=== PATIENT | male | born 1940 | race Caucasian/White ===

== ENCOUNTER 2020-01-16 18:27 | Emergency (ER) | payer MEDICARE, BC ==
[2020-01-16 18:42] VITALS: BP 176/93; PULSE 73
--- NOTE | 2020-01-16 19:21 | EDM.PDOC ---
ED HPI GENERAL MEDICAL PROBLEM - General Chief Complaint: Upper Extremity Injury/Pain Stated Complaint: LEFT SHOULDER PAIN Time Seen by Provider: 01/16/20 19:05 Source of Information: Reports: Patient, Old Records, Provider History Limitations: Reports: No Limitations - History of Present Illness INITIAL COMMENTS - FREE TEXT/NARRATIVE: 79 yo male referred to the ER from the clinic for L shoulder pain for a few day with concern about cardiac etiology. Not related to exertion. No SOB, nausea or diaphoresis. An EKG and CXR in the clinic were not worrisome. No cardiac hx. 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 Now that he is here in the ER his pain is all gone. Onset: Gradual Onset Date: 01/13/20 Duration: Day(s): (3), Constant Location: Reports: Upper Extremity, Left (shoulder) Severity: Mild Improves with: Reports: None Worsens with: Reports: None Context: Reports: Other (see HPI) Associated Symptoms: Reports: No Other Symptoms Treatments INSURANCE PROFESSIONAL: Reports: Other (see below) (none) SHOULDER Pain Score (Numeric/FACES): 3 - Related Data Allergies Allergy/AdvReac Type Severity Reaction Status Date / Time No Known Allergies Allergy Verified 01/16/20 18:42 Home Meds: Home Meds Lisinopril 20 mg PO DAILY 08/27/16 [History] NIFEdipine [Procardia XL] 30 mg PO DAILY 08/27/16 [History] Tamsulosin [Tamsulosin 24 Hr] 0.4 mg PO DAILY 08/27/16 [History] Warfarin [Coumadin] 5 mg PO DAILY 08/27/16 [History] Donepezil HCl 10 mg PO DAILY 12/08/19 [History] Fluticasone Propionate [Flonase] 2 spray NASBOTH DAILY PRN 12/08/19 [History] Folic Acid 0.8 mg PO DAILY 12/08/19 [History] Hanson-3/DHA/Epa/Fish Oil [Hanson-3 Fish Oil 1,200 MG Sfgl] 1,200 mg PO DAILY [History] Multivit with Calcium,Iron,Min [One Daily with Calcium-Iron] 1 tab PO DAILY [History] Past Medical History HEENT History: Reports: Impaired Vision Cardiovascular History: Reports: Afib, Hypertension Respiratory History: Reports: None Gastrointestinal History: Reports: None Genitourinary History: Reports: Urinary Incontinence Musculoskeletal History: Reports: Other (See Below) Other Musculoskeletal History: bilateral knee pain Neurological History: Reports: None Psychiatric History: Reports: None Endocrine/Metabolic History: Reports: None Hematologic History: Reports: None Immunologic History: Reports: None Oncologic (Cancer) History: Reports: None Dermatologic History: Reports: None - Past Surgical History Head Surgeries/Procedures: Reports: None Cardiovascular Surgical History: Reports: None GI Surgical History: Reports: Appendectomy Musculoskeletal Surgical History: Reports: None Social & Family History - Tobacco Use Smoking Status *Q: Never Smoker - Caffeine Use Caffeine Use: Reports: Tea - Recreational Drug Use Recreational Drug Use: No Review of Systems - Review of Systems Review Of Systems: See Below Constitutional: Reports: No Symptoms Respiratory: Reports: No Symptoms Cardiovascular: Reports: No Symptoms GI/Abdominal: Reports: No Symptoms Musculoskeletal: Reports: Shoulder Pain (Left, not worse with palpation or ROM. ) Skin: Reports: No Symptoms Neurological: Reports: No Symptoms ED EXAM, GENERAL - Physical Exam Exam: See Below Exam Limited By: No Limitations General Appearance: Alert, WD/WN, No Apparent Distress Eye Exam: Bilateral Eye: Normal Inspection Ears: Normal External Exam, Normal Canal, Hearing Grossly Normal Ear Exam: Bilateral Ear: Auricle Normal, Canal Normal Nose: Normal Inspection, No Blood Throat/Mouth: Normal Inspection, Normal Lips, Normal Oropharynx, Normal Voice, No Airway Compromise Head: Atraumatic, Normocephalic Neck: Normal Inspection Respiratory/Chest: No Respiratory Distress, Lungs Clear, Normal Breath Sounds, No Accessory Muscle Use Cardiovascular: Regular Rate, Rhythm, No Edema GI/Abdominal: Normal Bowel Sounds, Soft, Non-Tender, No Distention Back Exam: Normal Inspection Extremities: Normal Inspection, Normal Range of Motion, Non-Tender, No Pedal Edema. No: Pedal Edema, Limited Range of Motion, Increased Warmth, Redness Neurological: Alert, Oriented, CN II-XII Intact, Normal Cognition, No Motor/ Sensory Deficits Psychiatric: Normal Affect, Normal Mood Skin Exam: Warm, Dry, Intact, Normal Color, No Rash Course - Vital Signs Last Recorded V/S: Last Vital Signs Temp 37.1 C 01/16/20 18:40 Pulse 73 01/16/20 18:40 Resp 19 01/16/20 18:40 BP 176/93 H 01/16/20 18:40 Pulse Ox 95 01/16/20 18:40 - Orders/Labs/Meds Labs: Laboratory Tests 01/16/20 01/16/20 Range/Units 18:29 18:30 PT 19.4 H (9.5-12.0) sec INR 1.86 H D (0.80-1.20) Troponin I < 0.017 (0.000-0.056) ng/mL Departure - Departure Time of Disposition: 19:23 Disposition: Home, Self-Care 01 Condition: Good Clinical Impression: Shoulder pain Qualifiers: Chronicity: unspecified Laterality: left Qualified Code(s): M25.512 - Pain in left shoulder - Discharge Information *PRESCRIPTION DRUG MONITORING PROGRAM REVIEWED*: No *COPY OF PRESCRIPTION DRUG MONITORING REPORT IN PATIENT ARY: No Instructions: Shoulder Pain Referrals: Mallory White MD [Primary Care Provider] - Forms: ED Department Discharge Additional Instructions: Acetaminophen as needed for pain relief. Return if worse. Your heart enzyme test today was totally normal as were your other tests. If still concerned about your heart, then schedule a stress test with your doctor. Sepsis Event Note - Evaluation Sepsis Screening Result: No Definite Risk - Focused Exam Vital Signs: Vital Signs Temp Pulse Resp BP Pulse Ox 01/16/20 18:40 37.1 C 73 19 176/93 H 95 Date Exam was Performed: 01/16/20 Time Exam was Performed: 19:23
== END 2020-01-16 20:00 | disposition home or self-care (01) ==
LOC: JP.ED 18:27
DX: M25.512 Pain in left shoulder (principal); I48.91 Unspecified atrial fibrillation; I10 Essential (primary) hypertension; Z79.899 Other long term (current) drug therapy; Z79.01 Long term (current) use of anticoagulants
CPT/HCPCS: 36415; 84484; 85610; 99283

== ENCOUNTER 2021-03-14 06:44 | Inpatient (IN) | payer MEDICARE, BC ==
[2021-03-14] MEDS ORDERED: Povidone-Iodine 10% Soln 118.25 ML Bottle ONE (06:56)
[2021-03-14] MEDS ORDERED: Lactated Ringers 1,000 ML IV SCH (08:15)
[2021-03-14] MEDS ORDERED: ceFAZolin 2 GM in Premix Bag 1 BAG IV ONE (09:00)
[2021-03-14] MEDS ORDERED: fentaNYL 100 MCG/2 ML SDV ONE (09:29)
[2021-03-14] MEDS ORDERED: Propofol 200 MG/20 ML SDV ONE (09:29)
[2021-03-14] MEDS ORDERED: Midazolam 1 MG/ML 2 ML SDV ONE (09:29)
[2021-03-14] MEDS ORDERED: Lactated Ringers 1,000 ML ONE (10:12)
[2021-03-14] MEDS ORDERED: ePHEDrine 50 MG/ML SDV ONE (10:19)
[2021-03-14] MEDS ORDERED: Acetaminophen/HYDROcodone 325-5 MG Tab PO PRN (11:05)
[2021-03-14] MEDS ORDERED: Acetaminophen 325 MG Tab PO PRN (11:05)
[2021-03-14] MEDS ORDERED: Magnesium Hydroxide 400 MG/5 ML Susp 30 ML Cup PO PRN (11:05)
[2021-03-14] MEDS ORDERED: Ondansetron 4 MG/2 ML SDV IVPUSH PRN (11:05)
[2021-03-14] MEDS ORDERED: Sennosides 8.6 MG Tab PO PRN (11:05)
[2021-03-14] MEDS ORDERED: Fluticasone Propionate Nasal Spray 16 GM Bottle NASBOTH PRN (11:12)
[2021-03-14] MEDS ORDERED: Sodium Chloride 5% Ophth Soln 15 ML Bottle EYEBOTH PRN (11:15)
[2021-03-14] MEDS ORDERED: Prochlorperazine 5 MG in Sodium Chloride 0.9% 50 ML IV PRN (11:41)
--- NOTE | 2021-03-14 12:01 | CR ---
Knee 1V or 2V Rt CLINICAL HISTORY: Total arthroplasty FINDINGS: Patient is status post recent total knee arthroplasty. Components appear well seated. There is some intra-articular and subcutaneous kidneys air Impression: Status post total right knee arthroplasty
[2021-03-14] MEDS ORDERED: Hypromellose 0.3% Ophth Soln 15 ML Bottle EYEBOTH PRN (12:11)
[2021-03-14] MEDS: Acetaminophen/oxyCODONE 325-5 MG Tab PO PRN ×2 (13:08→18:20)
[2021-03-14] MEDS: Morphine 2 MG/ML SYRINGE IVPUSH PRN ×4 (13:14→21:35)
[2021-03-14] MEDS: Sodium Chloride 0.9% 1,000 ML IV SCH (15:57)
[2021-03-14] MEDS: ceFAZolin 1 GM in Premix Bag 1 BAG IV SCH ×2 (15:57→23:29)
[2021-03-14] MEDS: traMADol 50 MG Tab PO PRN ×2 (16:09→23:27)
[2021-03-14] MEDS: Nozin Nasal Sanitizer NASBOTH SCH ×2 (18:07→21:25)
[2021-03-14] MEDS ORDERED: Nozin Nasal Sanitizer NASBOTH SCH (21:00)
[2021-03-14] MEDS: Docusate Sodium 100 MG Cap PO SCH (21:26)
[2021-03-15] MEDS: Sodium Chloride 0.9% 1,000 ML IV SCH ×2 (00:52→09:01)
[2021-03-15] MEDS: Acetaminophen/oxyCODONE 325-5 MG Tab PO PRN ×3 (05:07→16:18)
--- NOTE | 2021-03-15 07:41 | PCM.SURGPN ---
- General Info Date of Service: 03/15/21 Date of Surgery/Procedure: 03/14/21 POD#: 1 Post-Op Diagnosis: right knee osteoarthritis Functional Status: Reports: Tolerating Diet, Ambulating (with FWW + assist ) - Review of Systems Musculoskeletal: Reports: Leg Pain (right ), Joint Pain (right knee ), Joint Swelling (right knee ) Neurological: Reports: Confusion (per baseline ) Psychiatric: Reports: No Symptoms - Patient Data Vitals - Most Recent: Last Vital Signs Temp 98.3 F 03/15/21 07:06 Pulse 82 03/15/21 07:06 Resp 20 03/15/21 07:06 BP 158/88 H 03/15/21 07:06 Pulse Ox 94 L 03/15/21 07:06 Weight - Most Recent: 221 lb 6.4 oz I&O - Last 24 Hours: Intake & Output 03/14/21 03/15/21 03/15/21 22:59 06:59 14:59 Intake Total 400 1269 Output Total 650 475 Balance -250 794 Lab Results Last 24 Hrs: Laboratory Results - last 24 hr 03/14/21 03/15/21 Range/Units 07:35 05:56 WBC 8.1 (4.5-11.0) K/uL RBC 4.14 L (4.30-5.90) M/uL Hgb 12.5 (12.0-15.0) g/dL Hct 38.4 L (40.0-54.0) % MCV 93 (80-98) fL MCH 30 (27-31) pg MCHC 33 (32-36) % Plt Count 214 (150-400) K/uL Blood Type A POSITIVE Gel Antibody Screen Negative Med Orders - Current: Current Medications Acetaminophen (Acetaminophen 325 Mg Tab) 650 mg PO Q4H PRN PRN Reason: Pain/Fever Hydrocodone Bitart/Acetaminophen (Acetaminophen/Hydrocodone 325-5 Mg Tab) 1 tab PO Q4H PRN PRN Reason: Pain (mild 1-3) Artificial Tears (Hypromellose 0.3% Ophth Soln 15 Ml Bottle) 0 ml EYEBOTH ASDIRECTED PRN PRN Reason: DRY EYES Bandage/Support Products (Nozin Nasal [employer]) 1 applic NASBOTH BID ISABEL Stop: 03/20/21 21:01 Last Admin: 03/14/21 21:25 Dose: 1 applic Documented by: Docusate Sodium (Docusate Sodium 100 Mg Cap) 100 mg PO BID [facility] Last Admin: 03/14/21 21:26 Dose: 100 mg Documented by: Donepezil HCl (Donepezil 10 Mg Tab) 10 mg PO DAILY [facility] Fluticasone Propionate (Fluticasone Propionate Nasal [place] 16 Gm Bottle) 0 gm NASBOTH DAILY PRN PRN Reason: Other Folic Acid (Folic Acid 1 Mg Tab) 1 mg PO DAILY [facility] Sodium Chloride (Normal Saline) 1,000 mls @ 125 mls/hr IV ASDIRECTED [facility] Last Admin: 03/15/21 00:52 Dose: 125 mls/hr Documented by: Cefazolin Sodium/Dextrose 1 gm (/ Premix) 50 mls @ 100 mls/hr IV Q8H [facility] Stop: 03/15/21 08:29 Last Admin: 03/14/21 23:29 Dose: 100 mls/hr Documented by: Prochlorperazine Edisylate 5 (mg/ Sodium Chloride) 51 mls @ 150 mls/hr IV Q6H PRN PRN Reason: Nausea/Vomiting Lisinopril (Lisinopril 20 Mg Tab) 20 mg PO DAILY [facility] Magnesium Hydroxide (Magnesium Hydroxide 400 Mg/5 Ml Susp 30 Ml Cup) 30 ml PO BID PRN PRN Reason: Constipation Morphine Sulfate (Morphine 2 Mg/Ml Syringe) 1 mg IVPUSH Q1H PRN PRN Reason: Breakthrough Pain Last Admin: 03/14/21 21:35 Dose: 1 mg Documented by: Nifedipine (Nifedipine 30 Mg Tab.Er) 30 mg PO DAILY [facility] Oxycodone/Acetaminophen (Acetaminophen/Oxycodone 325-5 Mg Tab) 1 - 2 tab PO Q4H PRN PRN Reason: Pain Last Admin: 03/15/21 05:07 Dose: 2 tab Documented by: Senna (Sennosides 8.6 Mg Tab) 8.6 mg PO BID PRN PRN Reason: Constipation Sodium Chloride (Sodium Chloride 5% Ophth Soln 15 Ml Bottle) 0 ml EYEBOTH ASDIRECTED PRN PRN Reason: DRY EYES Tamsulosin HCl (Tamsulosin 0.4 Mg Cap.Er) 0.4 mg PO DAILY [facility] Tramadol HCl (Tramadol 50 Mg Tab) 50 mg PO Q6H PRN PRN Reason: Breakthrough Pain Last Admin: 03/14/21 23:27 Dose: 50 mg Documented by: Warfarin Sodium (Warfarin 5 Mg Tab) 5 mg PO DAILY@1300 ISABEL Discontinued Medications Ephedrine Sulfate (Ephedrine 50 Mg/Ml Sdv) Confirm Administered Dose 50 mg .ROUTE .STK-MED ONE Stop: 03/14/21 10:20 Fentanyl (Fentanyl 100 Mcg/2 Ml Sdv) Confirm Administered Dose 100 mcg .ROUTE .STK-MED ONE Stop: 03/14/21 09:30 Cefazolin Sodium/Dextrose 2 gm (/ Premix) 50 mls @ 100 mls/hr IV ONETIME ONE Stop: 03/14/21 09:29 Last Admin: 03/14/21 09:25 Dose: 100 mls/hr Documented by: Lactated Ringer's (Ringers, Lactated) 1,000 mls @ 75 mls/hr IV ASDIRECTED [facility] Last Admin: 03/14/21 07:22 Dose: 75 mls/hr Documented by: Lactated Ringer's (Ringers, Lactated) Confirm Administered Dose 1,000 mls @ as directed .ROUTE .STK-MED ONE Stop: 03/14/21 10:13 Midazolam HCl (Midazolam 1 Mg/Ml 2 Ml Sdv) Confirm Administered Dose 2 mg .ROUTE .STK-MED ONE Stop: 03/14/21 09:30 Ondansetron HCl (Ondansetron 4 Mg/2 Ml Sdv) 4 mg IVPUSH Q4H PRN PRN Reason: Nausea/Vomiting Povidone Iodine (Povidone-Iodine 10% Soln 118.25 Ml Bottle) Confirm Administered Dose 1 ml .ROUTE .STK-MED ONE Stop: 03/14/21 06:57 Last Admin: 03/14/21 10:13 Dose: 1 ml Documented by: Propofol (Propofol 200 Mg/20 Ml Sdv) Confirm Administered Dose 200 mg .ROUTE .STK-MED ONE Stop: 03/14/21 09:30 - Exam Wound/Incisions: Dressing Dry and Intact Quality Assessment: Urine Catheter, DVT Prophylaxis General: Alert, Cooperative Extremities: Pedal Edema, Joint Swelling (R knee ), Leg Pain, Limited Range of Motion Skin: Warm, Intact Neurological: No New Focal Deficit Psy/Mental Status: Alert, Normal Affect, Normal Mood Sepsis Event Note - Evaluation Sepsis Screening Result: No Definite Risk - Focused Exam Vital Signs: Vital Signs Temp Temp Pulse Resp BP Pulse Ox 03/15/21 07:06 98.3 F 82 20 158/88 H 94 L 03/15/21 02:35 96.8 F L 78 18 131/72 97 03/14/21 22:14 97.5 F 79 16 121/64 97 - Problem List & Annotations (1) S/P total knee arthroplasty SNOMED Code(s): 4559892297074, 371564706, 9324452754652 Code(s): Z96.659 - PRESENCE OF UNSPECIFIED ARTIFICIAL KNEE JOINT Status: Acute Current Visit: Yes Qualifiers: Laterality: right Qualified Code(s): Z96.651 - Presence of right artificial knee joint - Problem List Review Problem List Initiated/Reviewed/Updated: Yes - My Orders Last 24 Hours: Active Orders 24 hr Category Date Time Status Patient Status [ADT] Routine ADT 03/14/21 11:05 Active Ambulate [RC] QID Care 03/14/21 11:05 Active Antiembolic Devices [RC] .Routine Care 03/14/21 11:05 Active Head of Bed Elevation [RC] ASDIRECTED Care 03/14/21 11:05 Active Intake and Output [RC] QSHIFT Care 03/14/21 11:05 Active May Shower [RC] ASDIRECTED Care 03/14/21 11:05 Active Neurovascular Check [RC] Q4H Care 03/14/21 11:05 Active Notify Provider Vital Signs [RC] ASDIRECTED Care 03/14/21 11:05 Active Oxygen Therapy [RC] PRN Care 03/14/21 11:05 Active RT Incentive Spirometry [RC] Q1HWA Care 03/14/21 11:05 Active Up to Chair [RC] QID Care 03/14/21 11:05 Active Wound Care [RC] Q12H Care 03/14/21 11:05 Active Consult to Case Management/Road Crew Member [CONS] Cons 03/14/21 11:05 Active Routine OT Evaluation and Treatment [CONS] Routine Cons 03/14/21 11:05 Active PT Evaluation and Treatment [CONS] Routine Cons 03/14/21 11:05 Active PT Evaluation and Treatment [CONS] Routine Cons 03/14/21 11:05 Active Regular Diet [DIET] Diet 03/14/21 Lunch Active Acetaminophen [TylenoL] Med 03/14/21 11:05 Active 650 mg PO Q4H PRN Acetaminophen/HYDROcodone [[place] 325-5 MG] Med 03/14/21 11:05 Active 1 tab PO Q4H PRN Acetaminophen/oxyCODONE [Percocet 325-5 MG] Med 03/14/21 11:05 Active 1 - 2 tab PO Q4H PRN Docusate Sodium [Colace] Med 03/14/21 21:00 Active 100 mg PO BID Donepezil [Aricept] Med 03/15/21 09:00 Active 10 mg PO DAILY Fluticasone Propionate [Flonase] Med 03/14/21 11:12 Active 0 gm NASBOTH DAILY PRN Folic Acid Med 03/15/21 09:00 Active 1 mg PO DAILY Hypromellose [GenTeal Mild to Moderate Ophth Soln] Med 03/14/21 12:11 Active 0 ml EYEBOTH ASDIRECTED PRN Magnesium Hydroxide [Milk of Magnesia] Med 03/14/21 11:05 Active 30 ml PO BID PRN Morphine Med 03/14/21 11:05 Active 1 mg IVPUSH Q1H PRN NIFEdipine [Procardia XL] Med 03/15/21 09:00 Active 30 mg PO DAILY Nozin [ Nasal [employer]] Med 03/14/21 08:30 Active 1 applic NASBOTH BID Prochlorperazine [Compazine] 5 mg Med 03/14/21 11:41 Active Sodium Chloride 0.9% [Normal Saline] 50 ml IV Q6H Sennosides [Senna] Med 03/14/21 11:05 Active 8.6 mg PO BID PRN Sodium Chloride 0.9% [Normal Saline] 1,000 ml Med 03/14/21 11:15 Active IV ASDIRECTED Sodium Chloride 5% [[place] 128 5% Ophth Soln] Med 03/14/21 11:15 Active 0 ml EYEBOTH ASDIRECTED PRN Tamsulosin [Flomax] Med 03/15/21 09:00 Active 0.4 mg PO DAILY Warfarin [Coumadin] Med 03/15/21 13:00 Active 5 mg PO DAILY@1300 ceFAZolin [Ancef 1 GM/50 ML] 1 gm Med 03/14/21 16:00 Active Premix Bag 1 bag IV Q8H lisinopriL [Prinivil] Med 03/15/21 09:00 Active 20 mg PO DAILY traMADol [Ultram] Med 03/14/21 15:51 Active 50 mg PO Q6H PRN Antiembolic Hose [OM.PC] Routine Oth 03/14/21 11:05 Ordered DVT/VTE Prophylaxis Reflex [OM.PC] Routine Oth 03/14/21 11:05 Ordered Ice Therapy [OM.PC] Per Unit Routine Ot 03/14/21 11:05 Ordered Medication Continuation Instructions [OM.PC] Per Unit Oth 03/14/21 11:05 Ordered Routine Oral Care [OM.PC] Routine Oth 03/14/21 11:05 Ordered Sequential Compression Device [OM.PC] Routine Ot 03/14/21 11:05 Ordered TOYA Hose [Antiembolic Hose] [OM.PC] Routine Ot 03/14/21 09:00 Ordered Resuscitation Status Routine Resus Stat 03/14/21 11:05 Ordered Medication Orders Acetaminophen (Acetaminophen 325 Mg Tab) 650 mg PO Q4H PRN PRN Reason: Pain/Fever Hydrocodone Bitart/Acetaminophen (Acetaminophen/Hydrocodone 325-5 Mg Tab) 1 tab PO Q4H PRN PRN Reason: Pain (mild 1-3) Artificial Tears (Hypromellose 0.3% Ophth Soln 15 Ml Bottle) 0 ml EYEBOTH ASDIRECTED PRN PRN Reason: DRY EYES Bandage/Support Products (Nozin Nasal [employer]) 1 applic NASBOTH BID [facility] Stop: 03/20/21 21:01 Last Admin: 03/14/21 21:25 Dose: 1 applic Documented by: Admin: 03/14/21 18:07 Dose: Not Given Documented by: STEVE Docusate Sodium (Docusate Sodium 100 Mg Cap) 100 mg PO BID [facility] Last Admin: 03/14/21 21:26 Dose: 100 mg Documented by: TAYLOR Donepezil HCl (Donepezil 10 Mg Tab) 10 mg PO DAILY [facility] Fluticasone Propionate (Fluticasone Propionate Nasal [place] 16 Gm Bottle) 0 gm NASBOTH DAILY PRN PRN Reason: Other Folic Acid (Folic Acid 1 Mg Tab) 1 mg PO DAILY [facility] Sodium Chloride (Normal Saline) 1,000 mls @ 125 mls/hr IV ASDIRECTED [facility] Last Admin: 03/15/21 00:52 Dose: 125 mls/hr Documented by: Infusion: 03/14/21 23:57 Dose: 125 mls/hr Documented by: Admin: 03/14/21 15:57 Dose: 125 mls/hr Documented by: STEVE Cefazolin Sodium/Dextrose 1 gm (/ Premix) 50 mls @ 100 mls/hr IV Q8H ISABEL Stop: 03/15/21 08:29 Last Admin: 03/14/21 23:29 Dose: 100 mls/hr Documented by: Infusion: 03/14/21 16:27 Dose: 100 mls/hr Documented by: Admin: 03/14/21 15:57 Dose: 100 mls/hr Documented by: STEVE Prochlorperazine Edisylate 5 (mg/ Sodium Chloride) 51 mls @ 150 mls/hr IV Q6H PRN PRN Reason: Nausea/Vomiting Lisinopril (Lisinopril 20 Mg Tab) 20 mg PO DAILY [facility] Magnesium Hydroxide (Magnesium Hydroxide 400 Mg/5 Ml Susp 30 Ml Cup) 30 ml PO BID PRN PRN Reason: Constipation Morphine Sulfate (Morphine 2 Mg/Ml Syringe) 1 mg IVPUSH Q1H PRN PRN Reason: Breakthrough Pain Last Admin: 03/14/21 21:35 Dose: 1 mg Documented by: Admin: 03/14/21 15:40 Dose: 1 mg Documented by: Admin: 03/14/21 14:28 Dose: 1 mg Documented by: Admin: 03/14/21 13:14 Dose: 1 mg Documented by: GABRIEL Nifedipine (Nifedipine 30 Mg Tab.Er) 30 mg PO DAILY [facility] Oxycodone/Acetaminophen (Acetaminophen/Oxycodone 325-5 Mg Tab) 1 - 2 tab PO Q4H PRN PRN Reason: Pain Last Admin: 03/15/21 05:07 Dose: 2 tab Documented by: Admin: 03/14/21 18:20 Dose: 2 tab Documented by: Admin: 03/14/21 13:08 Dose: 2 tab Documented by: GABRIEL Senna (Sennosides 8.6 Mg Tab) 8.6 mg PO BID PRN PRN Reason: Constipation Sodium Chloride (Sodium Chloride 5% Ophth Soln 15 Ml Bottle) 0 ml EYEBOTH DIRECTED PRN PRN Reason: DRY EYES Tamsulosin HCl (Tamsulosin 0.4 Mg Cap.Er) 0.4 mg PO DAILY [facility] Tramadol HCl (Tramadol 50 Mg Tab) 50 mg PO Q6H PRN PRN Reason: Breakthrough Pain Last Admin: 03/14/21 23:27 Dose: 50 mg Documented by: Admin: 03/14/21 16:09 Dose: 50 mg Documented by: STEVE Warfarin Sodium (Warfarin 5 Mg Tab) 5 mg PO DAILY@1300 ISABEL - Assessment Assessment (Free Text/Narrative):: Patient is a pleasant 80 y/o male, s/p right total knee arthroplasty, POD#1. Patient tolerated surgery well with no complications. In the afternoon following surgery, patient struggled with pain control after the block wore off. Patient also had breakthrough bleeding of his incision, saturating the CAROLYN wrap and padding around R knee incision. Incision was inspected and remained well approximated. A new ABD dressing, padding, and CAROLYN wrap was applied yesterday afternoon. Patient was able to transfer to chair yesterday evening. Reports significant pain with bearing weight on R LE. Was unable to ambulate any further than the bed/chair transfer yesterday. Patient is slightly disoriented upon my arrival this morning, as he asked when he can go upstairs. Upon redirection, patient able to verbalize he is in the hospital following a knee replacement. reported some confusion per baseline. Patient reports he slept well overnight. Reports pain is much more tolerable this morning, rating it a 3/10 resting in bed. Nursing reports the CAROLYN wrap and padding was saturated again this morning and a new dressing was applied around 5 am this morning. Tolerating regular diet well, denied nausea or vomiting. POD#1 HgB 12.5. Patient denied dizziness or weakness. No orthostatic hypotension or dizziness with transfer to chair yesterday. Patient has had intermittent hypertensive BP readings, likely attributed to pain and holding home BP medications for surgery. Patient to resume home Lisinopril and Nifedipine doses this morning. Otherwise remains hemodynamically stable. Due to repeated breakthrough bleeding of incision and inadequate pain control yesterday leading to minimal therapy services, prolonged hospitalization is required. Patient status changed from same day surgery to inpatient; this will allow for further therapy services to progress ambulation status, and monitoring of incision to ensure the bleeding around incision has stopped. Exam: R knee dressing is dry and intact. R knee with modest edema + R pedal edema. Tibialis posterior and dorsalis pedis pulse appreciated, 2+. Capillary refill appropriate, < 3 seconds. Sensation to R LE intact. Calf is soft and supple. Negative Jaylin's sign. Plan: * Patient to participate in daily physical and occupational therapy services while in the hospital. * Patient to resume home warfarin dose for DVT/VTE chemical prophylaxis. Continue wearing SCDs for mechanical prophylaxis. * Patient to resume home blood pressure medications this morning; continue q4 hr vitals. * Continue with current pain regimen (see orders for details). * May discontinue tucker catheter, pending improved ambulation status after morning physical therapy. * May saline lock patient this morning. * Continue to monitor dressing for any breakthrough bleeding; nursing is okay to change dressing as necessary.
[2021-03-15] MEDS: ceFAZolin 1 GM in Premix Bag 1 BAG IV SCH (09:01)
[2021-03-15] MEDS: Folic Acid 1 MG Tab PO SCH (09:02)
[2021-03-15] MEDS: Lisinopril 20 MG Tab PO SCH (09:02)
[2021-03-15] MEDS: Docusate Sodium 100 MG Cap PO SCH ×2 (09:02→20:20)
[2021-03-15] MEDS: Tamsulosin 0.4 MG Cap.ER PO SCH (09:02)
[2021-03-15] MEDS: NIFEdipine 30 MG Tab.ER PO SCH (09:02)
[2021-03-15] MEDS: Donepezil 10 MG Tab PO SCH (09:02)
[2021-03-15] MEDS: Nozin Nasal Sanitizer NASBOTH SCH ×2 (09:03→20:20)
[2021-03-15] MEDS: Warfarin 5 MG Tab PO SCH (12:03)
[2021-03-16] MEDS: Nozin Nasal Sanitizer NASBOTH SCH ×2 (08:51→20:19)
[2021-03-16] MEDS: Folic Acid 1 MG Tab PO SCH (08:52)
[2021-03-16] MEDS: Tamsulosin 0.4 MG Cap.ER PO SCH (08:52)
[2021-03-16] MEDS: Lisinopril 20 MG Tab PO SCH (08:52)
[2021-03-16] MEDS: Docusate Sodium 100 MG Cap PO SCH ×2 (08:52→20:19)
[2021-03-16] MEDS: Donepezil 10 MG Tab PO SCH (08:52)
[2021-03-16] MEDS: NIFEdipine 30 MG Tab.ER PO SCH (08:53)
[2021-03-16] MEDS: traMADol 50 MG Tab PO PRN ×2 (08:58→15:20)
--- NOTE | 2021-03-16 09:39 | PCM.SURGPN ---
- General Info Date of Service: 03/16/21 Date of Surgery/Procedure: 03/14/21 POD#: 2 Post-Op Diagnosis: right knee osteoarthritis Functional Status: Reports: Tolerating Diet, Ambulating (with FWW, 1 assist ), Urinating - Review of Systems Musculoskeletal: Reports: Leg Pain (right ), Joint Pain (right knee ), Joint Swelling (right knee ) Neurological: Reports: Confusion (per baseline) - Patient Data Vitals - Most Recent: Last Vital Signs Temp 98.3 F 03/16/21 07:15 Pulse 84 03/16/21 07:15 Resp 18 03/16/21 07:15 BP 138/81 03/16/21 08:53 Pulse Ox 95 03/16/21 07:15 Weight - Most Recent: 221 lb I&O - Last 24 Hours: Intake & Output 03/15/21 03/16/21 03/16/21 22:59 06:59 14:59 Intake Total 720 200 Output Total 350 300 Balance 370 200 -300 Med Orders - Current: Current Medications Acetaminophen (Acetaminophen 325 Mg Tab) 650 mg PO Q4H PRN PRN Reason: Pain/Fever Last Admin: 03/16/21 07:24 Dose: 650 mg Documented by: Hydrocodone Bitart/Acetaminophen (Acetaminophen/Hydrocodone 325-5 Mg Tab) 1 tab PO Q4H PRN PRN Reason: Pain (mild 1-3) Last Admin: 03/16/21 07:24 Dose: 1 tab Documented by: Artificial Tears (Hypromellose 0.3% Ophth Soln 15 Ml Bottle) 0 ml EYEBOTH ASDIRECTED PRN PRN Reason: DRY EYES Bandage/Support Products (Nozin Nasal Oil [employer]orer) 1 applic NASBOTH BID [facility] Stop: 03/20/21 21:01 Last Admin: 03/16/21 08:51 Dose: 1 applic Documented by: Docusate Sodium (Docusate Sodium 100 Mg Cap) 100 mg PO BID [facility] Last Admin: 03/16/21 08:52 Dose: 100 mg Documented by: Donepezil HCl (Donepezil 10 Mg Tab) 10 mg PO DAILY [facility] Last Admin: 03/16/21 08:52 Dose: 10 mg Documented by: Fluticasone Propionate (Fluticasone Propionate Nasal [place] 16 Gm Bottle) 0 gm NASBOTH DAILY PRN PRN Reason: Other Folic Acid (Folic Acid 1 Mg Tab) 1 mg PO DAILY [facility] Last Admin: 03/16/21 08:52 Dose: 1 mg Documented by: Sodium Chloride (Normal Saline) 1,000 mls @ 125 mls/hr IV ASDIRECTED [facility] Last Admin: 03/15/21 09:01 Dose: 125 mls/hr Documented by: Prochlorperazine Edisylate 5 (mg/ Sodium Chloride) 51 mls @ 150 mls/hr IV Q6H PRN PRN Reason: Nausea/Vomiting Lisinopril (Lisinopril 20 Mg Tab) 20 mg PO DAILY [facility] Last Admin: 03/16/21 08:52 Dose: 20 mg Documented by: Magnesium Hydroxide (Magnesium Hydroxide 400 Mg/5 Ml Susp 30 Ml Cup) 30 ml PO BID PRN PRN Reason: Constipation Morphine Sulfate (Morphine 2 Mg/Ml Syringe) 1 mg IVPUSH Q1H PRN PRN Reason: Breakthrough Pain Last Admin: 03/14/21 21:35 Dose: 1 mg Documented by: Nifedipine (Nifedipine 30 Mg Tab.Er) 30 mg PO DAILY [facility] Last Admin: 03/16/21 08:53 Dose: 30 mg Documented by: Oxycodone/Acetaminophen (Acetaminophen/Oxycodone 325-5 Mg Tab) 1 - 2 tab PO Q4H PRN PRN Reason: Pain Last Admin: 03/15/21 16:18 Dose: 2 tab Documented by: Senna (Sennosides 8.6 Mg Tab) 8.6 mg PO BID PRN PRN Reason: Constipation Last Admin: 03/16/21 08:59 Dose: 8.6 mg Documented by: Sodium Chloride (Sodium Chloride 5% Ophth Soln 15 Ml Bottle) 0 ml EYEBOTH ASDIRECTED PRN PRN Reason: DRY EYES Tamsulosin HCl (Tamsulosin 0.4 Mg Cap.Er) 0.4 mg PO DAILY [facility] Last Admin: 03/16/21 08:52 Dose: 0.4 mg Documented by: Tramadol HCl (Tramadol 50 Mg Tab) 50 mg PO Q6H PRN PRN Reason: Breakthrough Pain Last Admin: 03/16/21 08:58 Dose: 50 mg Documented by: Warfarin Sodium (Warfarin 5 Mg Tab) 5 mg PO DAILY@1300 [facility] Last Admin: 03/15/21 12:03 Dose: 5 mg Documented by: Discontinued Medications Ephedrine Sulfate (Ephedrine 50 Mg/Ml Sdv) Confirm Administered Dose 50 mg .ROUTE .STK-MED ONE Stop: 03/14/21 10:20 Fentanyl (Fentanyl 100 Mcg/2 Ml Sdv) Confirm Administered Dose 100 mcg .ROUTE .STK-MED ONE Stop: 03/14/21 09:30 Cefazolin Sodium/Dextrose 2 gm (/ Premix) 50 mls @ 100 mls/hr IV ONETIME ONE Stop: 03/14/21 09:29 Last Admin: 03/14/21 09:25 Dose: 100 mls/hr Documented by: Lactated Ringer's (Ringers, Lactated) 1,000 mls @ 75 mls/hr IV ASDIRECTED [facility] Last Admin: 03/14/21 07:22 Dose: 75 mls/hr Documented by: Lactated Ringer's (Ringers, Lactated) Confirm Administered Dose 1,000 mls @ as directed .ROUTE .STK-MED ONE Stop: 03/14/21 10:13 Cefazolin Sodium/Dextrose 1 gm (/ Premix) 50 mls @ 100 mls/hr IV Q8H [facility] Stop: 03/15/21 08:29 Last Admin: 03/15/21 09:01 Dose: 100 mls/hr Documented by: Midazolam HCl (Midazolam 1 Mg/Ml 2 Ml Sdv) Confirm Administered Dose 2 mg .ROUTE .STK-MED ONE Stop: 03/14/21 09:30 Ondansetron HCl (Ondansetron 4 Mg/2 Ml Sdv) 4 mg IVPUSH Q4H PRN PRN Reason: Nausea/Vomiting Povidone Iodine (Povidone-Iodine 10% Soln 118.25 Ml Bottle) Confirm Administered Dose 1 ml .ROUTE .STK-MED ONE Stop: 03/14/21 06:57 Last Admin: 03/14/21 10:13 Dose: 1 ml Documented by: Propofol (Propofol 200 Mg/20 Ml Sdv) Confirm Administered Dose 200 mg .ROUTE .STK-MED ONE Stop: 03/14/21 09:30 - Exam Wound/Incisions: Dressing Dry and Intact Quality Assessment: DVT Prophylaxis General: Alert, Cooperative, No Acute Distress Extremities: Leg Pain (right ), Limited Range of Motion, Increased Warmth (right knee ) Skin: Warm, Dry, Intact Psy/Mental Status: Alert Sepsis Event Note - Evaluation Sepsis Screening Result: No Definite Risk - Focused Exam Vital Signs: Vital Signs Temp Pulse Resp BP BP BP Pulse Ox 03/16/21 08:53 138/81 03/16/21 08:52 138/81 03/16/21 07:15 98.3 F 84 18 138/81 95 03/16/21 02:52 97 F 99 18 147/77 H 96 03/15/21 22:28 97.7 F 76 16 124/66 95 - Problem List & Annotations (1) S/P total knee arthroplasty SNOMED Code(s): 3072775450673, 705696766, 9062503705694 Code(s): Z96.659 - PRESENCE OF UNSPECIFIED ARTIFICIAL KNEE JOINT Status: Acute Current Visit: Yes Qualifiers: Laterality: right Qualified Code(s): Z96.651 - Presence of right artificial knee joint - Problem List Review Problem List Initiated/Reviewed/Updated: Yes - My Orders Last 24 Hours: Active Orders 24 hr Category Date Time Status Donepezil [Aricept] Med 03/15/21 09:00 Active 10 mg PO DAILY Folic Acid Med 03/15/21 09:00 Active 1 mg PO DAILY NIFEdipine [Procardia XL] Med 03/15/21 09:00 Active 30 mg PO DAILY Tamsulosin [Flomax] Med 03/15/21 09:00 Active 0.4 mg PO DAILY Warfarin [Coumadin] Med 03/15/21 13:00 Active 5 mg PO DAILY@1300 lisinopriL [Prinivil] Med 03/15/21 09:00 Active 20 mg PO DAILY Medication Orders Acetaminophen (Acetaminophen 325 Mg Tab) 650 mg PO Q4H PRN PRN Reason: Pain/Fever Last Admin: 03/16/21 07:24 Dose: 650 mg Documented by: FRANKIE Hydrocodone Bitart/Acetaminophen (Acetaminophen/Hydrocodone 325-5 Mg Tab) 1 tab PO Q4H PRN PRN Reason: Pain (mild 1-3) Last Admin: 03/16/21 07:24 Dose: 1 tab Documented by: FRANKIE Artificial Tears (Hypromellose 0.3% Ophth Soln 15 Ml Bottle) 0 ml EYEBOTH ASDIRECTED PRN PRN Reason: DRY EYES Bandage/Support Products (Nozin Nasal Oil [employer]orer) 1 applic NASBOTH BID [facility] Stop: 03/20/21 21:01 Last Admin: 03/16/21 08:51 Dose: 1 applic Documented by: Admin: 03/15/21 20:20 Dose: 1 applic Documented by: Admin: 03/15/21 09:03 Dose: 1 applic Documented by: Admin: 03/14/21 21:25 Dose: 1 applic Documented by: Admin: 03/14/21 18:07 Dose: Not Given Documented by: STEVE Docusate Sodium (Docusate Sodium 100 Mg Cap) 100 mg PO BID [facility] Last Admin: 03/16/21 08:52 Dose: 100 mg Documented by: Admin: 03/15/21 20:20 Dose: 100 mg Documented by: Admin: 03/15/21 09:02 Dose: 100 mg Documented by: Admin: 03/14/21 21:26 Dose: 100 mg Documented by: TAYLOR Donepezil HCl (Donepezil 10 Mg Tab) 10 mg PO DAILY [facility] Last Admin: 03/16/21 08:52 Dose: 10 mg Documented by: Admin: 03/15/21 09:02 Dose: 10 mg Documented by: FRANKIE Fluticasone Propionate (Fluticasone Propionate Nasal [place] 16 Gm Bottle) 0 gm NASBOTH DAILY PRN PRN Reason: Other Folic Acid (Folic Acid 1 Mg Tab) 1 mg PO DAILY [facility] Last Admin: 03/16/21 08:52 Dose: 1 mg Documented by: Admin: 03/15/21 09:02 Dose: 1 mg Documented by: FRANKIE Sodium Chloride (Normal Saline) 1,000 mls @ 125 mls/hr IV ASDIRECTED [facility] Last Admin: 03/15/21 09:01 Dose: 125 mls/hr Documented by: Infusion: 03/15/21 08:52 Dose: 125 mls/hr Documented by: Admin: 03/15/21 00:52 Dose: 125 mls/hr Documented by: Infusion: 03/14/21 23:57 Dose: 125 mls/hr Documented by: Admin: 03/14/21 15:57 Dose: 125 mls/hr Documented by: STEVE Prochlorperazine Edisylate 5 (mg/ Sodium Chloride) 51 mls @ 150 mls/hr IV Q6H PRN PRN Reason: Nausea/Vomiting Lisinopril (Lisinopril 20 Mg Tab) 20 mg PO DAILY [facility] Last Admin: 03/16/21 08:52 Dose: 20 mg Documented by: Admin: 03/15/21 09:02 Dose: 20 mg Documented by: FRANKIE Magnesium Hydroxide (Magnesium Hydroxide 400 Mg/5 Ml Susp 30 Ml Cup) 30 ml PO BID PRN PRN Reason: Constipation Morphine Sulfate (Morphine 2 Mg/Ml Syringe) 1 mg IVPUSH Q1H PRN PRN Reason: Breakthrough Pain Last Admin: 03/14/21 21:35 Dose: 1 mg Documented by: Admin: 03/14/21 15:40 Dose: 1 mg Documented by: Admin: 03/14/21 14:28 Dose: 1 mg Documented by: Admin: 03/14/21 13:14 Dose: 1 mg Documented by: GABRIEL Nifedipine (Nifedipine 30 Mg Tab.Er) 30 mg PO DAILY [facility] Last Admin: 03/16/21 08:53 Dose: 30 mg Documented by: Admin: 03/15/21 09:02 Dose: 30 mg Documented by: FRANKIE Oxycodone/Acetaminophen (Acetaminophen/Oxycodone 325-5 Mg Tab) 1 - 2 tab PO Q4H PRN PRN Reason: Pain Last Admin: 03/15/21 16:18 Dose: 2 tab Documented by: Admin: 03/15/21 12:03 Dose: 2 tab Documented by: Admin: 03/15/21 05:07 Dose: 2 tab Documented by: Admin: 03/14/21 18:20 Dose: 2 tab Documented by: Admin: 03/14/21 13:08 Dose: 2 tab Documented by: GABRIEL Senna (Sennosides 8.6 Mg Tab) 8.6 mg PO BID PRN PRN Reason: Constipation Last Admin: 03/16/21 08:59 Dose: 8.6 mg Documented by: FRANKIE Sodium Chloride (Sodium Chloride 5% Ophth Soln 15 Ml Bottle) 0 ml EYEBOTH ASDIRECTED PRN PRN Reason: DRY EYES Tamsulosin HCl (Tamsulosin 0.4 Mg Cap.Er) 0.4 mg PO DAILY [facility] Last Admin: 03/16/21 08:52 Dose: 0.4 mg Documented by: Admin: 03/15/21 09:02 Dose: 0.4 mg Documented by: FRANKIE Tramadol HCl (Tramadol 50 Mg Tab) 50 mg PO Q6H PRN PRN Reason: Breakthrough Pain Last Admin: 03/16/21 08:58 Dose: 50 mg Documented by: Admin: 03/14/21 23:27 Dose: 50 mg Documented by: Admin: 03/14/21 16:09 Dose: 50 mg Documented by: STEVE Warfarin Sodium (Warfarin 5 Mg Tab) 5 mg PO DAILY@1300 [facility] Last Admin: 03/15/21 12:03 Dose: 5 mg Documented by: FRANKIE - Assessment Assessment (Free Text/Narrative):: Patient is a pleasant 80 y/o male, s/p R total knee arthroplasty, POD #2. Patient tolerated surgery well with no complications. Patient hospital course prolonged and status changed to inpatient, due to inadequate pain control, need for additional therapies, and breakthrough bleeding of R knee incision. Patient continues to require inpatient status on POD#2 due to his increased confusion; working towards finding a pain medication regimen that provides adequate pain control with decreased confusion. Patient is also requiring additional therapy services at this time to aid with transitions into bed and R leg lifting/maneuvers. Report from RN that patient had increased confusion overnight; not aware of where is he, how much time has passed, and has attempted to get out of bed independently. Patient is alert and oriented this afternoon, with spouse by bedside. Reports pain feels well-controlled, 3/10 at rest in bed. Has not had any breakthrough bleeding of R knee incision since yesterday. Has been completing daily PT; ambulated 75 feet with FWW and x2 assist today. Also worked on bilateral LE strengthening exercises. Requires assistance with transitions into bed and lifting R leg. Requires verbal cues and assistance with ADLs. Tolerating regular diet well with no nausea or vomiting. Vitals within acceptable limits, patient remains hemodynamically stable. Catheter pulled and IV saline locked on POD#1. Exam: Dressing dry and intact on R knee. R knee warm to touch. Moderate edema of R knee, extending into calf. Tibialis posterior pulse 2+. Sensation to R LE intact. Plan: * Participate in PT and OT services daily while in the hospital. * Continue to monitor R knee incision for breakthrough bleeding; nurses okay to change dressing as needed. * Continue to monitor for any increased confusion; utilizing Nettie and Tramadol for pain control to see if this helps decrease confusion. Discontinued Percocet order, as this caused increased confusion from patient's baseline. Nettie order adjusted to allow 1-2 tabs q4 hrs, pending on patient's level of pain (see orders for details). * Discharge planning working on placement at SNF at [facility].
[2021-03-16] MEDS: Acetaminophen/HYDROcodone 325-5 MG Tab PO PRN ×2 (12:49→17:04)
[2021-03-16] MEDS: Warfarin 5 MG Tab PO SCH (12:49)
--- NOTE | 2021-03-17 08:20 | OR ---
DATE OF PROCEDURE: 03/14/2021 SURGEON: Fredi Peterson MD PREOPERATIVE DIAGNOSIS: Osteoarthritis, right knee. POSTOPERATIVE DIAGNOSIS: Osteoarthritis, right knee. PROCEDURE: Right total knee arthroplasty using [employer] components with a size 9 femur, G tibia, 13 mm polyethylene, and 35 mm patella. FIBER DESIGNER: AYDEN Conley ANESTHESIA: Spinal with sedation. INDICATIONS: Mr. Hargrove is a pleasant 80-year-old male with a history of progressive pain in the right knee for the past couple of years. It has gotten significantly worse this past year. Interfering with activities of daily living and ambulation. X-rays revealed end- stage osteoarthritis with joint space collapse and sclerosis. Moderate varus deformity. Now presents for right total knee arthroplasty. Risks, benefits, and potential complications were discussed with the patient and his . Services of physician assistant professor of education were utilized throughout the case for limb positioning, retraction, and exposure. DESCRIPTION OF PROCEDURE: After adequate anesthesia was obtained, the patient was placed supine with the tourniquet above the right upper thigh. Right leg was prepped and draped in a sterile fashion. Leg was exsanguinated and tourniquet inflated to 300 mmHg pressure. A longitudinal incision was made over the anterior aspect of the knee, carried down through the subcutaneous tissues and a medial parapatellar arthrotomy was performed. Mild effusion was present. The patella was partially everted. A portion of the fat pad was excised. The posterior aspect of the patella was resected with an oscillating saw. The knee was flexed. Distal femur was exposed revealing extensive osteoarthritis. Intramedullary canal of the femur was drilled. Intramedullary guide was placed and the distal femoral cuts were then made. Extramedullary tibial alignment jig was placed, aligned, and secured to the tibia. The proximal tibia was resected with an oscillating saw. The remaining medial and lateral menisci were excised. Attention was returned to the femur which was sized to a 9 component. A size 9 distal cutting jig was secured to the femur and remaining cuts were made. Trial component was placed with good fit. PEG holes were drilled, and the intercondylar notch was then cut for a posterior cruciate-sacrificing component. The tibia was sized to a G component. This was initially placed with a 12 mm polyethylene. Rotation was marked. The trial poly was removed along with the femur and the tibia was pinned in place. Intramedullary canal was drilled, and the fin punch was utilized. The tibial guide tray was removed, and the knee was then thoroughly irrigated with pulse lavage. Bone surfaces were dried. Components were cemented in place. Excess cement was removed. The knee was held in full extension with trial insert as cement cured. Knee was then taken through range of motion, which showed excellent patellar tracking without lateral release. Slight laxity was present in both flexion and extension, and a 13 mm insert was then utilized. This showed good balance in flexion and extension. The trials were removed. The knee was irrigated. Final polyethylene was secured in position and the knee was irrigated a final time with a dilute Betadine solution which was left in place for 2.5 minutes followed by pulse lavage irrigation. Capsule was closed using a #2 Ethibond in interrupted fashion. Skin was closed with 2-0 Vicryl and a running 3-0 Monocryl. Steri-Strips were placed with sterile dressing and a light compressive wrap. The patient tolerated procedure very well. There were no complications. Taken from the operating room in stable condition. Fredi Peterson MD /[id number]
--- NOTE | 2021-03-17 08:21 | PCM.DCSUM1 ---
Discharge Summary - Hospital Course Brief History: Patient is a pleasant 80 y/o male, with chronic R knee pain with osteoarthritis. Symptoms were refractory to conservative management, elected to undergo surgical management with a right total knee arthroplasty. Patient tolerated surgery well with no complications. Patients hospital stay prolonged due to breakthrough bleeding of dressing, increased confusion from baseline, and need for additional therapy services to be safe for discharge. Patient is discharging to a SNF for additional care prior to returning home. Diagnosis: Stroke: No Modified Emory Scale: No Symptoms at All Modified [place] Scale Score: 0 - Discharge Data Discharge Date: 03/17/21 Discharge Disposition: DC/Tfer to SNF 03 Condition: Good - Referral to Home Health Date of Face to Face Encounter: 03/17/21 Primary Care Physician: Mallory White MD Skilled Need: Assistance with ADLs, physical therapy, dressing changes - Discharge Diagnosis/Problem(s) (1) S/P total knee arthroplasty SNOMED Code(s): 0426917940947, [id number], [id number] ICD Code: Z96.659 - PRESENCE OF UNSPECIFIED ARTIFICIAL KNEE JOINT Status: Acute Current Visit: Yes Qualifiers: Laterality: right Qualified Code(s): Z96.651 - Presence of right artificial knee joint - Patient Summary/Data Operative Procedure(s) Performed: right total knee arthroplasty Consults: Consultations 03/14/21 11:05 Consult to Case Management/Ore Buyer [CONS] Routine Comment: Physician Instructions: Service(s) to be Consulted: Case Management Reason for Consult: Plan for Discharge Special Instructions: s/p R TKA OT Evaluation and Treatment [CONS] Routine Please Evaluate and Treat. OT Reason for Consult: ADL's Special Instructions: s/p R TKA This query below is only for informational purposes and is not editable. PT Evaluation and Treatment [CONS] Routine Please Evaluate and Treat. PT Reason for Consult: Post op Ortho Surgery Special Instructions: s/p R TKA. WBAT This query below is only for informational purposes and is not editable. PT Evaluation and Treatment [CONS] Routine Please Evaluate and Treat. PT Reason for Consult: Post op Ortho Surgery Knee Pending Discharge: Yes, 1- 2 days Special Instructions: Schedule first outpatient PT appointment in 3-5 day post discharge. This query below is only for informational purposes and is not editable. Hospital Course: Patient is a pleasant 80 y/o male, s/p right total knee arthroplasty, POD#3. Patient tolerated surgery well with no major complications. Patient has mild confusion per baseline; takes daily Donepezil. Throughout hospital stay, patient would require re-direction to orient to place and time. Confusion level increased with Percocet and Morphine the evening of surgery and into POD#1, so [place] and Tramadol were utilized for pain management POD#2-3. [place]/Tramadol provided adequate pain relief and seemed to lessen the amount of confusion patient was experiencing. Patients hospital stay was prolonged due to increased confusion, need for additional therapy services to be safe for discharge, and breakthrough bleeding of R knee incision. The afternoon of surgery and into POD#1, Jeff's dressing required multiple changes due to breakthrough bleeding. Incision remained well approximated and intact, but blood continued to leak through. By POD#2, the dressing had minimal dried drainage. With physical therapy on POD#2 bending the knee caused a minor amount of bleeding. New dressing applied again in the afternoon on POD#2 and there has been no breakthrough bleeding or drainage since. Patient completed physical therapy twice daily while in the hospital; improved on ambulation distance each day. Ambulated up to 75 feet with FWW and x2 assist, completed bilateral LE strengthening exercises, and also worked on safe transfers from bed to chair, though still requires assistance with lifting R leg into bed. ROM: 10-85. Staff provided verbal cues and moderate assistance with ADLs throughout stay. On POD#1, catheter was discontinued and IV was saline locked. HgB POD#1 was 12.5. Patient remained hemodynamically stable throughout stay, vitals within acceptable limits. Tolerated regular diet well with no nausea or vomiting. Exam: R knee dressing is dry and intact. No active drainage. Incision well approximated, steristrips remain intact over incision. No visible erythema of incision. No ecchymosis of R knee. Mild warmth to touch of R knee. Modest edema of R knee, + R pedal edema. Tibialis posterior pulse appreciated, 2+. Sensation to LE intact. Calf is soft and supple. Negative R Jaylin's sign. - Patient Instructions Diet: Usual Diet as Tolerated Activity: Apply Ice, Full Weight Bearing Driving: Do Not Drive Showering/Bathing: Shower in AM Wound/Incision Care: Keep Operative Site/Wound Site Clean and Dry, Change Dressing Daily Notify Provider of: Fever, Increased Pain, Swelling and Redness, Drainage - Discharge Plan *PRESCRIPTION DRUG MONITORING PROGRAM REVIEWED*: Yes *COPY OF PRESCRIPTION DRUG MONITORING REPORT IN PATIENT ARY: Not Applicable Home Medications: Home Meds Lisinopril 20 mg PO DAILY 08/27/16 [History] NIFEdipine [Procardia XL] 30 mg PO DAILY 08/27/16 [History] Tamsulosin [Tamsulosin 24 Hr] 0.4 mg PO DAILY 08/27/16 [History] Warfarin [Coumadin] 5 mg PO ASDIRECTED 08/27/16 [History] Donepezil HCl 10 mg PO DAILY 12/08/19 [History] Fluticasone Propionate [Flonase] 2 spray NASBOTH DAILY PRN 12/08/19 [History] Folic Acid 0.8 mg PO DAILY 12/08/19 [History] [place]-3/DHA/Epa/Fish Oil [[place]-3 Fish Oil 1,200 MG Sfgl] 1,200 mg PO DAILY 12/08/19 [History] Multivit with Calcium,Iron,Min [One Daily with Calcium-Iron] 1 tab PO DAILY 01/01/20 [History] Aspirin [Halfprin] 81 mg PO DAILY 03/14/21 [History] Light Mineral Oil/Min Oil/Pf [Retaine Mgd Eye Drops] 1 each OP ASDIRECTED PRN 03/14/21 [History] Sodium Chloride 5% [[place] 128 5% Ophth Soln] 1 drop .XX ASDIRECTED 03/14/21 [History] Oxygen Therapy Mode: Room Air Patient Handouts: Total Knee Replacement, Care After, [id number], Preventing Problems After Surgery, Preventing Constipation After Surgery Referrals: Yobani Chandler PA [Ordering Only Provider] - 03/29/21 9:30 am (Please arrive 15 minutes early to register for your appointment.) - Discharge Summary/Plan Comment DC Time >30 min.: No Discharge Summary/Plan Comment: * Anticipate discharge this afternoon to [facility] in [place] * Continue with morning physical therapy session prior to discharge this afternoon * Will resume home Warfarin dose for DVT/VTE prophylaxis * Patient to continue with Nozin spray * Paper script provided for pain medication: 5-325mg [place], 1-2 tabs q6 hrs prn pain, dispense #40 * Patient to follow up with orthopedic clinic in 2 weeks for post-op visit. Encouraged patient/Rehana to call if any concerns or questions arise prior to scheduled apt - General Info Date of Service: 03/17/21 Admission Dx/Problem (Free Text: right knee osteoarthritis Functional Status: Reports: Pain Controlled, Tolerating Diet, Ambulating (with FWW, x2 assist ), Urinating - Review of Systems General: Reports: No Symptoms HEENT: Reports: No Symptoms Pulmonary: Reports: No Symptoms Cardiovascular: Reports: No Symptoms Gastrointestinal: Reports: No Symptoms Genitourinary: Reports: No Symptoms Musculoskeletal: Reports: Leg Pain (right ), Joint Pain (right knee ), Joint Swelling (right knee ) Neurological: Reports: Confusion (per baseline ) - Patient Data Vitals - Most Recent: Last Vital Signs Temp 95.5 F L 03/17/21 07:00 Pulse 80 03/17/21 07:00 Resp 16 03/17/21 07:00 BP 126/78 03/17/21 07:00 Pulse Ox 98 03/17/21 07:00 Weight - Most Recent: 221 lb I&O - Last 24 hours: Intake & Output 03/16/21 03/17/21 03/17/21 22:59 06:59 14:59 Intake Total 300 700 Balance 300 700 Med Orders - Current: Current Medications Acetaminophen (Acetaminophen 325 Mg Tab) 650 mg PO Q4H PRN PRN Reason: Pain/Fever Last Admin: 03/16/21 07:24 Dose: 650 mg Documented by: Hydrocodone Bitart/Acetaminophen (Acetaminophen/Hydrocodone 325-5 Mg Tab) 1 - 2 tab PO Q4H PRN PRN Reason: Pain Last Admin: 03/16/21 17:04 Dose: 2 tab Documented by: Artificial Tears (Hypromellose 0.3% Ophth Soln 15 Ml Bottle) 0 ml EYEBOTH ASDIRECTED PRN PRN Reason: DRY EYES Bandage/Support Products (Nozin Nasal [employer] Developer) 1 applic NASBOTH BID [facility] Stop: 03/20/21 21:01 Last Admin: 03/16/21 20:19 Dose: 1 applic Documented by: Docusate Sodium (Docusate Sodium 100 Mg Cap) 100 mg PO BID [facility] Last Admin: 03/16/21 20:19 Dose: 100 mg Documented by: Donepezil HCl (Donepezil 10 Mg Tab) 10 mg PO DAILY [facility] Last Admin: 03/16/21 08:52 Dose: 10 mg Documented by: Fluticasone Propionate (Fluticasone Propionate Nasal [place] 16 Gm Bottle) 0 gm NASBOTH DAILY PRN PRN Reason: Other Folic Acid (Folic Acid 1 Mg Tab) 1 mg PO DAILY [facility] Last Admin: 03/16/21 08:52 Dose: 1 mg Documented by: Prochlorperazine Edisylate 5 (mg/ Sodium Chloride) 51 mls @ 150 mls/hr IV Q6H PRN PRN Reason: Nausea/Vomiting Lisinopril (Lisinopril 20 Mg Tab) 20 mg PO DAILY [facility] Last Admin: 03/16/21 08:52 Dose: 20 mg Documented by: Magnesium Hydroxide (Magnesium Hydroxide 400 Mg/5 Ml Susp 30 Ml Cup) 30 ml PO BID PRN PRN Reason: Constipation Last Admin: 03/17/21 03:59 Dose: 30 ml Documented by: Morphine Sulfate (Morphine 2 Mg/Ml Syringe) 1 mg IVPUSH Q1H PRN PRN Reason: Breakthrough Pain Last Admin: 03/14/21 21:35 Dose: 1 mg Documented by: Nifedipine (Nifedipine 30 Mg Tab.Er) 30 mg PO DAILY [facility] Last Admin: 03/16/21 08:53 Dose: 30 mg Documented by: Senna (Sennosides 8.6 Mg Tab) 8.6 mg PO BID PRN PRN Reason: Constipation Last Admin: 03/16/21 08:59 Dose: 8.6 mg Documented by: Sodium Chloride (Sodium Chloride 5% Ophth Soln 15 Ml Bottle) 0 ml EYEBOTH ASDIRECTED PRN PRN Reason: DRY EYES Tamsulosin HCl (Tamsulosin 0.4 Mg Cap.Er) 0.4 mg PO DAILY [facility] Last Admin: 03/16/21 08:52 Dose: 0.4 mg Documented by: Tramadol HCl (Tramadol 50 Mg Tab) 50 mg PO Q6H PRN PRN Reason: Breakthrough Pain Last Admin: 03/16/21 15:20 Dose: 50 mg Documented by: Warfarin Sodium (Warfarin 5 Mg Tab) 5 mg PO DAILY@1300 [facility] Last Admin: 03/16/21 12:49 Dose: 5 mg Documented by: Discontinued Medications Hydrocodone Bitart/Acetaminophen (Acetaminophen/Hydrocodone 325-5 Mg Tab) 1 tab PO Q4H PRN PRN Reason: Pain (mild 1-3) Last Admin: 03/16/21 07:24 Dose: 1 tab Documented by: Ephedrine Sulfate (Ephedrine 50 Mg/Ml Sdv) Confirm Administered Dose 50 mg .ROUTE .STK-MED ONE Stop: 03/14/21 10:20 Fentanyl (Fentanyl 100 Mcg/2 Ml Sdv) Confirm Administered Dose 100 mcg .ROUTE .STK-MED ONE Stop: 03/14/21 09:30 Cefazolin Sodium/Dextrose 2 gm (/ Premix) 50 mls @ 100 mls/hr IV ONETIME ONE Stop: 03/14/21 09:29 Last Admin: 03/14/21 09:25 Dose: 100 mls/hr Documented by: Lactated Ringer's (Ringers, Lactated) 1,000 mls @ 75 mls/hr IV ASDIRECTED [facility] Last Admin: 03/14/21 07:22 Dose: 75 mls/hr Documented by: Lactated Ringer's (Ringers, Lactated) Confirm Administered Dose 1,000 mls @ as directed .ROUTE .STK-MED ONE Stop: 03/14/21 10:13 Sodium Chloride (Normal Saline) 1,000 mls @ 125 mls/hr IV ASDIRECTED [facility] Last Admin: 03/15/21 09:01 Dose: 125 mls/hr Documented by: Cefazolin Sodium/Dextrose 1 gm (/ Premix) 50 mls @ 100 mls/hr IV Q8H [facility] Stop: 03/15/21 08:29 Last Admin: 03/15/21 09:01 Dose: 100 mls/hr Documented by: Midazolam HCl (Midazolam 1 Mg/Ml 2 Ml Sdv) Confirm Administered Dose 2 mg .ROUTE .STK-MED ONE Stop: 03/14/21 09:30 Ondansetron HCl (Ondansetron 4 Mg/2 Ml Sdv) 4 mg IVPUSH Q4H PRN PRN Reason: Nausea/Vomiting Oxycodone/Acetaminophen (Acetaminophen/Oxycodone 325-5 Mg Tab) 1 - 2 tab PO Q4H PRN PRN Reason: Pain Last Admin: 03/15/21 16:18 Dose: 2 tab Documented by: Povidone Iodine (Povidone-Iodine 10% Soln 118.25 Ml Bottle) Confirm Administered Dose 1 ml .ROUTE .STK-MED ONE Stop: 03/14/21 06:57 Last Admin: 03/14/21 10:13 Dose: 1 ml Documented by: Propofol (Propofol 200 Mg/20 Ml Sdv) Confirm Administered Dose 200 mg .ROUTE .STK-MED ONE Stop: 03/14/21 09:30 - Exam General: Reports: Alert, Cooperative, No Acute Distress Extremities: Pedal Edema, Joint Swelling (right knee ), Leg Pain (right ) Skin: Reports: Dry, Intact Wound/Incisions: Reports: Healing Well, Dressing Dry and Intact, No Drainage Neurological: Reports: No New Focal Deficit Psy/Mental Status: Reports: Alert, Normal Affect, Normal Mood
[2021-03-17] MEDS: Acetaminophen/HYDROcodone 325-5 MG Tab PO PRN ×2 (08:22→12:04)
[2021-03-17] MEDS: Folic Acid 1 MG Tab PO SCH (08:22)
[2021-03-17] MEDS: Tamsulosin 0.4 MG Cap.ER PO SCH (08:22)
[2021-03-17] MEDS: Donepezil 10 MG Tab PO SCH (08:22)
[2021-03-17] MEDS: Nozin Nasal Sanitizer NASBOTH SCH (08:22)
[2021-03-17] MEDS: NIFEdipine 30 MG Tab.ER PO SCH (08:22)
[2021-03-17] MEDS: Lisinopril 20 MG Tab PO SCH (08:22)
[2021-03-17] MEDS: Docusate Sodium 100 MG Cap PO SCH (08:22)
[2021-03-17 11:01] VITALS: BP 105/49; PULSE 90
[2021-03-17] MEDS: Warfarin 5 MG Tab PO SCH (12:04)
== END 2021-03-17 12:50 | DRG 470 ==
LOC: JP.SDS 06:44 → JP.MS 11:05 → JP.SDS 03-15 08:12 → JP.MS 03-15 08:12
PROVIDERS: ADMIT Specialist; ATTEND Specialist
PROC: 0SRC0J9 Replacement of Right Knee Joint with Synthetic Substitute, Cemented, Open Approach (ICD-10-PCS; principal; 2021-03-14)
DX: M17.11 Unilateral primary osteoarthritis, right knee (principal); I48.20 Chronic atrial fibrillation, unspecified; N18.30 Chronic kidney disease, stage 3 unspecified; I12.9 Hypertensive chronic kidney disease with stage 1 through stage 4 chronic kidney disease, or unspecified chronic kidney disease; E87.6 Hypokalemia; N52.9 Male erectile dysfunction, unspecified; N40.0 Benign prostatic hyperplasia without lower urinary tract symptoms; E66.9 Obesity, unspecified; N39.41 Urge incontinence; E78.00 Pure hypercholesterolemia, unspecified; Z79.01 Long term (current) use of anticoagulants; Z79.899 Other long term (current) drug therapy; Z20.822 Contact with and (suspected) exposure to COVID-19
CPT/HCPCS: 36415; 73560-26-RT; 73560-RT; 85027; 86850; 86900; 86901; 97110-GP; 97116-GP; 97161-GP; 97165-GO; 97530-GP; A9270-GY; C1713; C1776; J0690; J2250; J2270; J2704; J3010; J7030; J7120; U0002

== ENCOUNTER 2022-06-28 19:33 | Emergency (ER) | payer MEDICARE, BC ==
[2022-06-28 19:50] VITALS: BP 129/72; PULSE 74
[2022-06-28] MEDS ORDERED: fentaNYL 100 MCG/2 ML SDV IM ONE (21:38)
== END 2022-06-28 23:46 | disposition home or self-care (01) ==
LOC: JP.ED 19:33
DX: S72.111A Displaced fracture of greater trochanter of right femur, initial encounter for closed fracture (principal); I48.91 Unspecified atrial fibrillation; I10 Essential (primary) hypertension; Z79.01 Long term (current) use of anticoagulants; Z79.899 Other long term (current) drug therapy; W18.30XA Fall on same level, unspecified, initial encounter
CPT/HCPCS: 73502; 73560; 73700; 96372; 99284; J3010

== ENCOUNTER 2022-10-24 06:36 | Emergency (ER) | payer MEDICARE, BC ==
[2022-10-24 06:43] VITALS: PULSE 86
[2022-10-24 07:44] LABS: ESTIMATED GFR 50 mL/min (>60)
[2022-10-24 08:40] VITALS: BP 150/88
== END 2022-10-24 08:42 | disposition home or self-care (01) ==
LOC: JP.ED 06:36
DX: R04.0 Epistaxis (principal); R79.1 Abnormal coagulation profile; I48.91 Unspecified atrial fibrillation; I10 Essential (primary) hypertension; Z79.01 Long term (current) use of anticoagulants; Z79.899 Other long term (current) drug therapy
CPT/HCPCS: 36415; 80048; 85025; 85610; 99283

== ENCOUNTER 2023-05-16 17:59 | Emergency (ER) | payer MEDICARE, BC ==
[2023-05-16 19:48] VITALS: BP 164/93; PULSE 68
[2023-05-16 20:23] LABS: PROTHROMBIN TIME 70.1 sec (9.2-10.6)
[2023-05-16 20:30] LABS: INR 7.9
== END 2023-05-16 20:56 | disposition home or self-care (01) ==
LOC: JP.ED 17:59
DX: M17.11 Unilateral primary osteoarthritis, right knee (principal); M79.662 Pain in left lower leg; I48.92 Unspecified atrial flutter; I12.9 Hypertensive chronic kidney disease with stage 1 through stage 4 chronic kidney disease, or unspecified chronic kidney disease; N18.30 Chronic kidney disease, stage 3 unspecified; I48.91 Unspecified atrial fibrillation; N40.0 Benign prostatic hyperplasia without lower urinary tract symptoms; Z79.02 Long term (current) use of antithrombotics/antiplatelets; Z79.899 Other long term (current) drug therapy
CPT/HCPCS: 36415; 85610; 99283

== ENCOUNTER 2023-12-31 12:39 | Inpatient (IN) | payer MEDICARE, BC ==
[2023-12-31 13:52] LABS: BASOPHILS ABSOLUTE AUTO 0.03 K/uL (0.00-0.10); BASOPHILS PERCENT AUTO 0.2 % (0.1-1.3); EOSINOPHILS ABSOLUTE AUTO 0.07 K/uL (0.00-0.40); EOSINOPHILS PERCENT AUTO 0.6 % (0.0-5.4); HEMATOCRIT 43.9 % (38.4-49.7); HEMOGLOBIN 14.7 g/dL (12.9-16.9); IMMATURE GRAN ABSOLUTE AUTO 0.12 K/uL (0.00-0.23); LYMPHOCYTES ABSOLUTE AUTO 0.68 K/uL (0.8-3.3); LYMPHOCYTES PERCENT AUTO 5.6 % (11.4-47.7); MEAN CORPUSCULAR HEMOGLOBIN 30.5 pg (31.6-35.5); MEAN CORPUSCULAR HGB CONC 33.5 g/dL (31.6-35.5); MEAN CORPUSCULAR VOLUME 91.1 fL (81.4-99.0); MONOCYTES PERCENT AUTO 8.2 % (3.3-12.6); NEUTROPHILS ABSOLUTE AUTO 10.26 K/uL (1.0-7.6); NEUTROPHILS PERCENT AUTO 84.4 % (40.0-78.1); PLATELET COUNT,PLT 469 K/uL (130-375); RED BLOOD CELL COUNT 4.82 M/uL (4.14-5.76); WHITE BLOOD CELL COUNT,WBC 12.2 K/uL (3.2-11.0)
[2023-12-31 14:00] LABS: CORONAVIRUS COVID-19 NAA NEGATIVE (NEGATIVE); INFLUENZA A NAA NEGATIVE (NEGATIVE); INFLUENZA B NAA NEGATIVE (NEGATIVE); RESPIRATORY SYNCYTIAL VIR NAA NEGATIVE (NEGATIVE)
[2023-12-31 14:13] LABS: ALANINE AMINOTRANSFERASE,ALT 58 U/L (12-78); ALBUMIN 2.1 g/dL (3.4-5.0); ALKALINE PHOSPHATASE 81 U/L (46-116); ASPARTATE AMNIOTRANSFERASE,AST 56 U/L (15-37); BLOOD UREA NITROGEN,BUN 20 mg/dL (7-18); CALCIUM 7.9 mg/dL (8.5-10.1); CARBON DIOXIDE,CO2 25 mmol/L (21-32); CHLORIDE,CL 104 mmol/L (100-108); CREATININE 1.1 mg/dL (0.8-1.3); ESTIMATED GFR 66 mL/min (>60); GLUCOSE RANDOM 104 mg/dL (74-106); POTASSIUM,K 3.3 mmol/L (3.6-5.2); PROTEIN TOTAL,TP 6.8 g/dL (6.4-8.2); SODIUM,NA 140 mmol/L (140-148)
[2023-12-31 14:14] LABS: A/G RATIO 0.5 (1.2-2.2); ANION GAP 14.3 mmol/L (5.0-14.0)
[2023-12-31] MEDS: Sodium Chloride 0.9% 1,000 ML IV SCH (14:29)
[2023-12-31] MEDS: cefTRIAXone 2 GM in Sodium Chloride 0.9% 100 ML IV SCH (14:30)
[2023-12-31 14:50] LABS: APPEARANCE,URINE CLEAR (CLEAR); BILIRUBIN,URINE SMALL (NEGATIVE); COLOR,URINE YELLOW (YELLOW); GLUCOSE,URINE NEGATIVE (NEGATIVE); KETONES,URINE NEGATIVE (NEGATIVE); LEUKOCYTE ESTERASE,URINE NEGATIVE (NEGATIVE); NITRITE,URINE NEGATIVE (NEGATIVE); OCCULT BLOOD,URINE TRACE-INTACT (NEGATIVE); PH,URINE 5.5 (5.0-8.0); PROTEIN,URINE 30 mg/dL (NEGATIVE)
[2023-12-31 14:56] LABS: AMORPHOUS SEDIMENT,URINE NOT SEEN; BACTERIA,URINE RARE; EPITHELIAL CELLS,URINE RARE; MUCUS,URINE NOT SEEN; WBC,URINE 0-5 (0-5)
[2023-12-31] MEDS ORDERED: Doxycycline 100 MG in Sodium Chloride 0.9% 100 ML IV SCH (15:00)
[2023-12-31] MEDS: Potassium Chloride 20 MEQ in Premix Bag 1 BAG IV ONE (16:09)
[2023-12-31 16:36] LABS: PROTHROMBIN TIME > 170.9 sec (9.2-10.6)
[2023-12-31] MEDS ORDERED: Albuterol 0.083% 2.5 MG/3 ML Neb Soln NEB PRN (17:36)
[2023-12-31] MEDS ORDERED: Polyethylene Glycol 3350 Powder 17 GM Packet PO PRN (17:36)
[2023-12-31] MEDS ORDERED: Sodium Chloride 0.9% 10 ML Syringe FLUSH PRN (17:36)
[2023-12-31] MEDS ORDERED: Ondansetron 4 MG/2 ML SDV IV PRN (17:36)
[2023-12-31] MEDS: Phytonadione 5 MG in Sodium Chloride 0.9% 50 ML IV ONE (18:09)
[2023-12-31] MEDS: Doxycycline 100 MG in Sodium Chloride 0.9% 100 ML IV SCH (18:23)
[2023-12-31] MEDS: Ampicillin/Sulbactam Na 1.5 GM in Sodium Chloride 0.9% 50 ML IV SCH (18:44)
[2023-12-31] MEDS: Potassium Chloride 20 MEQ Tab.ER PO ONE (19:24)
[2023-12-31] MEDS: Memantine 5 MG Tab PO SCH (20:22)
[2023-12-31] MEDS: Melatonin 3 MG Tab PO SCH (20:22)
[2023-12-31] MEDS ORDERED: Non-Formulary Medication 1 Each (Sertraline [Zoloft] 100 MG Tablet) PO SCH (21:00)
[2024-01-01] MEDS: Sodium Chloride 0.9% 1,000 ML IV SCH ×2 (00:20→10:40)
[2024-01-01] MEDS ORDERED: Sodium Chloride 0.9% 10 ML Syringe FLUSH PRN (02:41)
[2024-01-01] MEDS: Albuterol/Ipratropium 3.0-0.5 MG/3 ML Neb Soln NEB PRN (04:13)
[2024-01-01 06:27] LABS: HEMATOCRIT 40.3 % (38.4-49.7); HEMOGLOBIN 13.2 g/dL (12.9-16.9); MEAN CORPUSCULAR HEMOGLOBIN 30.1 pg (31.6-35.5); MEAN CORPUSCULAR HGB CONC 32.8 g/dL (31.6-35.5); RED BLOOD CELL COUNT 4.38 M/uL (4.14-5.76); WHITE BLOOD CELL COUNT,WBC 11.6 K/uL (3.2-11.0)
[2024-01-01 06:46] LABS: INR 3.7; PROTHROMBIN TIME 34.4 sec (9.2-10.6)
[2024-01-01 06:52] LABS: CALCIUM 7.6 mg/dL (8.5-10.1); EST CRCL DRUG DOSING (CG) 54.01 mL/min; MAGNESIUM 1.9 mg/dL (1.8-2.4); POTASSIUM,K 3.6 mmol/L (3.6-5.2)
[2024-01-01 06:53] LABS: ANION GAP 15.6 mmol/L (5.0-14.0)
[2024-01-01] MEDS: predniSONE 1 MG Tab PO SCH (07:36)
[2024-01-01] MEDS: Sertraline 50 MG Tab PO SCH (09:11)
[2024-01-01] MEDS: Donepezil 10 MG Tab PO SCH (09:11)
[2024-01-01] MEDS: Tamsulosin 0.4 MG Cap.ER PO SCH (09:11)
[2024-01-01] MEDS: Lisinopril 20 MG Tab PO SCH (09:11)
[2024-01-01] MEDS ORDERED: Warfarin 5 MG Tab PO SCH (13:00)
[2024-01-01] MEDS: Potassium Chloride 20 MEQ Tab.ER PO ONE (17:14)
[2024-01-02 04:57] LABS: HEMATOCRIT 39.8 % (38.4-49.7); MEAN CORPUSCULAR HEMOGLOBIN 30.6 pg (31.6-35.5); MEAN CORPUSCULAR HGB CONC 32.7 g/dL (31.6-35.5); MEAN CORPUSCULAR VOLUME 93.6 fL (81.4-99.0); RED BLOOD CELL COUNT 4.25 M/uL (4.14-5.76); WHITE BLOOD CELL COUNT,WBC 10.7 K/uL (3.2-11.0)
[2024-01-02 05:16] LABS: PROTHROMBIN TIME 50.6 sec (9.2-10.6)
[2024-01-02 05:19] LABS: CALCIUM 7.7 mg/dL (8.5-10.1); EST CRCL DRUG DOSING (CG) 54.01 mL/min; POTASSIUM,K 3.8 mmol/L (3.6-5.2)
[2024-01-02 05:29] LABS: ANION GAP 10.8 mmol/L (5.0-14.0)
[2024-01-02 05:31] LABS: INR 5.6
[2024-01-02] MEDS: Phytonadione 1 MG in Sodium Chloride 0.9% 50 ML IV ONE (09:09)
[2024-01-02] MEDS: Haloperidol 1 MG Tab PO PRN (18:25)
[2024-01-03 04:43] LABS: INR 2.2; PROTHROMBIN TIME 21.6 sec (9.2-10.6)
[2024-01-03] MEDS: Warfarin 5 MG Tab PO SCH (13:50)
[2024-01-03] MEDS: Sodium Chloride 0.9% 100 ML IV SCH (15:52)
[2024-01-03] MEDS: Iopamidol 755 Mg/ML 100 ML Bottle IV SCH (15:52)
[2024-01-03] MEDS: Furosemide 40 MG/4 ML VIAL IVPUSH ONE (16:58)
[2024-01-03] MEDS: Sodium Chloride 0.9% 10 ML Syringe FLUSH ONE (18:28)
[2024-01-04 05:07] LABS: INR 3.4; PROTHROMBIN TIME 32.2 sec (9.2-10.6)
[2024-01-04 05:10] LABS: CALCIUM 7.9 mg/dL (8.5-10.1); EST CRCL DRUG DOSING (CG) 54.01 mL/min; POTASSIUM,K 3.3 mmol/L (3.6-5.2)
[2024-01-04 05:15] LABS: ANION GAP 13.3 mmol/L (5.0-14.0)
[2024-01-04] MEDS: Potassium Chloride 20 MEQ Tab.ER PO ONE ×2 (09:27→17:00)
[2024-01-04] MEDS: Furosemide 40 MG/4 ML VIAL IVPUSH ONE (15:28)
[2024-01-05 05:47] LABS: PROTHROMBIN TIME 51.7 sec (9.2-10.6)
[2024-01-05 05:53] LABS: INR 5.7
[2024-01-05] MEDS: Phytonadione 1 MG in Sodium Chloride 0.9% 50 ML IV ONE (06:19)
[2024-01-05] MEDS ORDERED: Phytonadione 1 MG in Sodium Chloride 0.9% 50 ML IV ONE (08:09)
[2024-01-05] MEDS: Potassium Chloride 20 MEQ Tab.ER PO ONE (16:01)
[2024-01-05] MEDS: Furosemide 40 MG/4 ML VIAL IVPUSH ONE ×2 (16:01→16:02)
[2024-01-05] MEDS: Acetaminophen 325 MG Tab PO PRN (19:10)
[2024-01-05] MEDS: Amoxicillin/Clavulanate K 875-125 MG Tab PO SCH (20:00)
[2024-01-05] MEDS: Doxycycline 100 MG Cap PO SCH (20:01)
[2024-01-06 05:28] LABS: INR 2.3; PROTHROMBIN TIME 22.2 sec (9.2-10.6)
[2024-01-06] MEDS: Furosemide 40 MG/4 ML VIAL IVPUSH ONE (10:38)
[2024-01-06] MEDS: Warfarin 2.5 MG Tab PO SCH (13:13)
[2024-01-06] MEDS: Furosemide 40 MG Tab PO SCH (15:56)
[2024-01-06 23:15] VITALS: PULSE 75
[2024-01-07 05:28] VITALS: BP 118/56
[2024-01-07 05:55] LABS: INR 2.9; PROTHROMBIN TIME 27.7 sec (9.2-10.6)
== END 2024-01-07 10:33 | disposition hospice, home (50) | DRG 193 ==
LOC: JP.ED 12:39 → JP.MS 14:51 → EEVIPCON 14:51
PROVIDERS: ADMIT Hospitalist; ATTEND Hospitalist
DX: J18.9 Pneumonia, unspecified organism (principal); J96.01 Acute respiratory failure with hypoxia; I10 Essential (primary) hypertension; D68.9 Coagulation defect, unspecified; F02.B3 Dementia in other diseases classified elsewhere, moderate, with mood disturbance; I48.92 Unspecified atrial flutter; Z51.5 Encounter for palliative care; Z66 Do not resuscitate; G30.1 Alzheimer's disease with late onset; E87.6 Hypokalemia; N18.30 Chronic kidney disease, stage 3 unspecified; I48.91 Unspecified atrial fibrillation; Z96.659 Presence of unspecified artificial knee joint; I12.9 Hypertensive chronic kidney disease with stage 1 through stage 4 chronic kidney disease, or unspecified chronic kidney disease; N40.0 Benign prostatic hyperplasia without lower urinary tract symptoms; Z90.49 Acquired absence of other specified parts of digestive tract; Z98.890 Other specified postprocedural states; Z79.01 Long term (current) use of anticoagulants; Z79.899 Other long term (current) drug therapy
CPT/HCPCS: 0241U; 36415; 71045; 71275; 80048; 80053; 81001; 83605; 83735; 85025; 85027; 85610; 86140; 87040; 87086; 92610; 94640; 97110; 97161; 97530; 99223; 99233; 99238; 99285; A9270-GY; C1758; J0295; J0696; J1940; J3430; J3480; J3490; J7030; J7512; J7620; Q9967

== ENCOUNTER 2024-02-12 14:25 | Inpatient (IN) | payer MEDICARE, BC ==
[2024-02-12] MEDS: fentaNYL 100 MCG/2 ML SDV IVPUSH ONE (15:28)
[2024-02-12 15:35] LABS: BASOPHILS ABSOLUTE AUTO 0.06 K/uL (0.00-0.10); BASOPHILS PERCENT AUTO 0.7 % (0.1-1.3); EOSINOPHILS ABSOLUTE AUTO 0.37 K/uL (0.00-0.40); EOSINOPHILS PERCENT AUTO 4.4 % (0.0-5.4); HEMATOCRIT 42.3 % (38.4-49.7); HEMOGLOBIN 13.9 g/dL (12.9-16.9); IMMATURE GRAN ABSOLUTE AUTO 0.05 K/uL (0.00-0.23); IMMATURE GRAN PERCENT AUTO 0.6 % (0.0-0.7); LYMPHOCYTES ABSOLUTE AUTO 0.92 K/uL (0.8-3.3); LYMPHOCYTES PERCENT AUTO 10.9 % (11.4-47.7); MEAN CORPUSCULAR HEMOGLOBIN 29.4 pg (31.6-35.5); MEAN CORPUSCULAR HGB CONC 32.9 g/dL (31.6-35.5); MEAN CORPUSCULAR VOLUME 89.4 fL (81.4-99.0); MONOCYTES ABSOLUTE AUTO 0.68 K/uL (0.20-0.90); NEUTROPHILS ABSOLUTE AUTO 6.39 K/uL (1.0-7.6); NEUTROPHILS PERCENT AUTO 75.4 % (40.0-78.1); PLATELET COUNT,PLT 271 K/uL (130-375); RED BLOOD CELL COUNT 4.73 M/uL (4.14-5.76); WHITE BLOOD CELL COUNT,WBC 8.5 K/uL (3.2-11.0)
[2024-02-12 15:36] LABS: CORONAVIRUS COVID-19 NAA NEGATIVE (NEGATIVE); INFLUENZA A NAA NEGATIVE (NEGATIVE); INFLUENZA B NAA NEGATIVE (NEGATIVE); RESPIRATORY SYNCYTIAL VIR NAA NEGATIVE (NEGATIVE)
[2024-02-12 15:51] LABS: ANION GAP 9.1 mmol/L (5.0-14.0); CALCIUM 8.9 mg/dL (8.5-10.1); CREATININE 1.3 mg/dL (0.8-1.3); EST CRCL DRUG DOSING (CG) 42.9 mL/min; POTASSIUM,K 4.4 mmol/L (3.6-5.2)
[2024-02-12 15:53] LABS: INR 1.2; PROTHROMBIN TIME 11.6 sec (9.2-10.6)
[2024-02-12] MEDS ORDERED: Ondansetron 4 MG/2 ML SDV IV PRN (17:45)
[2024-02-12] MEDS ORDERED: Sodium Chloride 0.9% 10 ML Syringe FLUSH PRN (17:45)
[2024-02-12] MEDS: HYDROmorphone 0.5 MG/0.5 ML Syringe IVPUSH PRN (19:45)
[2024-02-12] MEDS: Sodium Chloride 0.9% 1,000 ML IV SCH (19:59)
[2024-02-12] MEDS: Memantine 5 MG Tab PO SCH (20:39)
[2024-02-12] MEDS: Morphine 10 MG/0.5 ML Oral Syringe PO STA (21:55)
[2024-02-12] MEDS: LORazepam ORAL Concentrate 1MG/0.5ML U/D PO STA (21:55)
[2024-02-13 05:49] LABS: HEMATOCRIT 39.6 % (38.4-49.7); HEMOGLOBIN 12.8 g/dL (12.9-16.9); MEAN CORPUSCULAR HEMOGLOBIN 29.2 pg (31.6-35.5); MEAN CORPUSCULAR HGB CONC 32.3 g/dL (31.6-35.5); MEAN CORPUSCULAR VOLUME 90.2 fL (81.4-99.0); RED BLOOD CELL COUNT 4.39 M/uL (4.14-5.76); WHITE BLOOD CELL COUNT,WBC 10.3 K/uL (3.2-11.0)
[2024-02-13 06:03] LABS: ANION GAP 7.6 mmol/L (5.0-14.0); CALCIUM 8.7 mg/dL (8.5-10.1); CREATININE 1.1 mg/dL (0.8-1.3); EST CRCL DRUG DOSING (CG) 50.69 mL/min; POTASSIUM,K 4.5 mmol/L (3.6-5.2)
[2024-02-13] MEDS ORDERED: Bupivacaine 0.25%/EPINEPHrine 1:200,000 30 ML SDV ONE (07:20)
[2024-02-13] MEDS ORDERED: Bupivacaine 0.5%/EPINEPHrine 1:200,000 50 ML MDV ONE (07:22)
[2024-02-13] MEDS ORDERED: fentaNYL 100 MCG/2 ML SDV ONE (08:41)
[2024-02-13] MEDS ORDERED: Propofol 200 MG/20 ML SDV ONE (08:41)
[2024-02-13] MEDS: Hydrocortisone Sodium Succinate 100 MG/2 ML SDV IVPUSH ONE (09:25)
[2024-02-13] MEDS: Sertraline 50 MG Tab PO SCH (09:32)
[2024-02-13] MEDS: Lisinopril 20 MG Tab PO SCH (09:32)
[2024-02-13] MEDS: Aspirin 81 MG Tab.EC PO SCH (09:33)
[2024-02-13] MEDS: Donepezil 10 MG Tab PO SCH (09:33)
[2024-02-13] MEDS: Tamsulosin 0.4 MG Cap.ER PO SCH (09:33)
[2024-02-13] MEDS: ceFAZolin 2 GM in Premix Bag 1 BAG IV ONE (12:00)
[2024-02-13] MEDS ORDERED: ePHEDrine 50 MG/ML SDV ONE (12:29)
[2024-02-13] MEDS ORDERED: Sodium Chloride 0.9% 10 ML ONE (12:29)
[2024-02-13] MEDS: Acetaminophen 325 MG Tab PO PRN (17:07)
[2024-02-13] MEDS ORDERED: oxyCODONE 5 MG Tab PO PRN (17:22)
[2024-02-13] MEDS: oxyCODONE 5 MG Tab PO PRN (19:34)
[2024-02-13] MEDS: Aspirin 325 MG Tab.EC PO SCH (20:32)
[2024-02-14] MEDS: Polyethylene Glycol 3350 Powder 17 GM Packet PO PRN (08:03)
[2024-02-14] MEDS: predniSONE 1 MG Tab PO SCH (08:09)
[2024-02-14] MEDS: Acetaminophen/HYDROcodone 325-5 MG Tab PO PRN (13:26)
[2024-02-14] MEDS: Sodium Chloride 0.9% 1,000 ML IV SCH (17:49)
[2024-02-14] MEDS: Haloperidol 1 MG Tab PO SCH (20:07)
[2024-02-14] MEDS: Melatonin 3 MG Tab PO PRN (20:07)
[2024-02-15] MEDS: Haloperidol 1 MG Tab PO PRN (00:30)
[2024-02-15 05:49] LABS: HEMATOCRIT 28.5 % (38.4-49.7); HEMOGLOBIN 9.2 g/dL (12.9-16.9); MEAN CORPUSCULAR HEMOGLOBIN 29.3 pg (31.6-35.5); MEAN CORPUSCULAR HGB CONC 32.3 g/dL (31.6-35.5); MEAN CORPUSCULAR VOLUME 90.8 fL (81.4-99.0); RED BLOOD CELL COUNT 3.14 M/uL (4.14-5.76); WHITE BLOOD CELL COUNT,WBC 9.8 K/uL (3.2-11.0)
[2024-02-15 06:07] LABS: ANION GAP 8.6 mmol/L (5.0-14.0); CALCIUM 8.4 mg/dL (8.5-10.1); EST CRCL DRUG DOSING (CG) 55.76 mL/min; POTASSIUM,K 3.8 mmol/L (3.6-5.2)
[2024-02-15 11:35] VITALS: BP 108/47; PULSE 62
== END 2024-02-15 13:15 | disposition hospice, home (50) | DRG 481 ==
LOC: JP.ED 14:25 → JP.MS 17:28 → EEVIPCON 17:28
PROVIDERS: ADMIT Hospitalist; ATTEND Hospitalist
PROC: 0QS736Z Reposition Left Upper Femur with Intramedullary Internal Fixation Device, Percutaneous Approach (ICD-10-PCS; principal; 2024-02-13 11:00)
DX: S72.142A Displaced intertrochanteric fracture of left femur, initial encounter for closed fracture (principal); F02.811 Dementia in other diseases classified elsewhere, unspecified severity, with agitation; F02.83 Dementia in other diseases classified elsewhere, unspecified severity, with mood disturbance; H54.7 Unspecified visual loss; I48.91 Unspecified atrial fibrillation; I10 Essential (primary) hypertension; N40.0 Benign prostatic hyperplasia without lower urinary tract symptoms; G30.9 Alzheimer's disease, unspecified; Z96.659 Presence of unspecified artificial knee joint; Z66 Do not resuscitate; E87.6 Hypokalemia; Z79.82 Long term (current) use of aspirin; Z79.899 Other long term (current) drug therapy; Z90.49 Acquired absence of other specified parts of digestive tract; Z98.890 Other specified postprocedural states; W19.XXXA Unspecified fall, initial encounter
CPT/HCPCS: 0241U; 36415; 73502; 76000; 80048; 85025; 85027; 85610; 93005; 93010; 96374; 97163; 99223; 99233; 99238; 99285; A9270-GY; C1713; C1776; J0690; J1170; J1720; J2704; J3010; J3490; J7030; J7512